=== PATIENT | male | born 1945 | race Caucasian/White ===

== ENCOUNTER → 2017-01-16 | Outpatient (CLI) | payer OTHER ==
[~2017-01-16] MED LIST: ACETAMINOPHEN325 MG PO; ACID CONTROLLER20 MG PO; ASPIRIN81 M1 PO; ASPIRIN81 M2 PO; ASPIRIN81 MG; ASPIRIN81 MG PO; CARDURA2 MG PO; CARVEDILOL25 MG PO; CLOPIDOGREL75 MG PO; COREG PO; COREG12.5 MG PO; COREG6.25 MG PO; CRESTOR PO; CRESTOR10 MG; DEMADEX PO; DEMADEX100 MG PO; DITROPAN PO; DITROPAN XL5 M2 PO; DITROPAN5 MG PO; DOXAZOSIN MESYLA2 MG PO; FAMOTIDINE20 M1 PO; FERROUS SULFATE PO; GUAIFENESIN600 MG PO; IMDUR PO; IMDUR30 MG; IMDUR30 MG PO; K-DUR20 ME1 PO; K-DUR20 ME2 PO; LISINOPRIL5 MG PO; MEXILETINE HCL150 MG PO; MEXITIL150 MG PO; PARICALCITOL2 MCG; PLAVIX PO; POTASSIUM CHLO10 MEQ PO; PREDNISONE PO; TORSEMIDE100 MG PO; TYLENOL #3 PO; ULORIC40 MG; ULORIC40 MG PO; ULTRAM PO; VICODIN 5/1 TAB 5/50 PO; VITAMIN E100 UNI2 PO; XANAX0.5 MG PO; ZEGERID 20 MG C1 CAP PO
[2017-01-16 13:29] LABS: ALBUMIN SERUM 3.8 g/dL (3.5-5.0); BILIRUBIN,TOTAL 0.9 mg/dL (0.2-2.0); BUN/CREATININE RATIO 15.92; CALCIUM SERUM 9.2 mg/dL (8.4-10.2); CREATININE SERUM 2.7 mg/dL (0.6-1.4); GLOM FILT RATE Estimated 24.9 mL/min (>60); PHOSPHOROUS 3.9 mg/dL (2.5-4.6); POTASSIUM 4.9 mmol/L (3.5-5.1); PROTEIN TOTAL SERUM 7.4 g/dL (6.0-8.3); URIC ACID 4.9 mg/dL (2.6-7.2)
[2017-01-19 23:44] LABS: CALCIUM (PTHINTACT) 9.5 mg/dL (8.6-10.3)
== END | disposition home or self-care (01) ==
LOC: CLAB 12:07
PROVIDERS: Internal Medicine Nephrology
DX: N17.9 Acute kidney failure, unspecified (principal); N18.3 Chronic kidney disease, stage 3 (moderate); N25.81 Secondary hyperparathyroidism of renal origin
CPT/HCPCS: 36415; 80053; 82310; 83970; 84100; 84550

== ENCOUNTER → 2017-04-02 | Outpatient (CLI) | payer OTHER ==
--- NOTE | ~2017-04-02 | US6 ---
[facility] A Service of [facility] RADIOLOGY TEXT RESULTS PATIENT: CRISSY SANCHEZ LOCATION: [facility] : 45 UNIT #: [id number] AGE: [address]: Andrade Garcia MD SEX: M ORDER DR: [id number] [facility] [address] [place], [place] [address] [id number] O MR#: [id number] Acc #: [id number] NAME: CRISSY SANCHEZ. : 1945 SEX: M STUDY DATE/TIME: 04/02/2017 7:31 UNIT: [facility] ROOM: STUDY DESCRIPTION: US Abdominal Limited Attending Physician: Andrade Garcia M.D. Referring Physician: Andrade Garcia M.D. Ordering Physician: Andrade Garcia M.D. Primary Care Physician: Ezekiel Rolon M.D. MEDICAL IMAGING REPORT This report is preliminary unless electronic signature is present EXAM Right upper quadrant abdominal ultrasound. DATE 04/02/2017 HISTORY Congestive heart failure. Cirrhosis. Abnormal elevated laboratory findings. Patient states abdominal discomfort for 1 year. Cholecystectomy approximately 8 years ago. Hypertension. Hyperlipidemia. COMPARISON Gallbladder ultrasound 09/01/2014. CT chest and abdomen 07/25/2016. FINDINGS The pancreas has a normal sonographic appearance. The liver demonstrates a coarsened echotexture with some diminished acoustic transmission which may reflect changes of the patient's known cirrhosis. There is a mildly lobulated contour of the liver surface in keeping with the stated history of cirrhosis. There is trace perihepatic ascites. No focal liver lesion is identified. Main portal vein is patent. Intrahepatic IVC demonstrates color flow. Small quantity right lower quadrant ascites is also noted. Liver size is within normal limits, 17.1 cm in the sagittal plane. Common bile duct caliber is within normal limits, 4-5 mm. No intrahepatic biliary ductal dilation is seen. Gallbladder is surgically absent. The right kidney measures 10.5 cm in length without focal cortical lesion, shadowing stone, or hydronephrosis. Right renal cortex appears thinned but maintains normal echogenicity. STS. [facility] A Service of [facility] RADIOLOGY TEXT RESULTS PATIENT: CRISSY SANCHEZ LOCATION: [facility] #: [id number] : 45 UNIT #: [id number] AGE: [address]: Andrade Garcia MD SEX: M ORDER DR: IMPRESSION 1. Lobulated surface contour of the liver with coarsened echogenicity in keeping with the stated history of cirrhosis. No focal liver lesions are identified on today's exam. 2. Small quantity ascites adjacent to the liver and within the right lower quadrant of the abdomen. 3. Cholecystectomy. No abnormal biliary ductal dilation. 4. Mild right renal cortical thinning. 5. Visualized portions of the pancreas appear unremarkable. Dictated by... Hailey Haddad M.D. THIS IS AN ELECTRONICALLY VERIFIED REPORT Hailey Haddad M.D. at 04/02/2017 5:00 PM AARON/jacobo TD: 04/02/2017 11:58 JOB #: [id number] MEDICAL IMAGING REPORT Page 1 of 1 COPY
== END | disposition home or self-care (01) ==
LOC: CGUS 06:55
DX: I50.9 Heart failure, unspecified (principal); R18.8 Other ascites; K74.60 Unspecified cirrhosis of liver
CPT/HCPCS: 76705

== ENCOUNTER → 2017-05-29 | Outpatient (CLI) | payer OTHER ==
[2017-05-29 16:21] LABS: ALBUMIN SERUM 3.2 g/dL (3.5-5.0); BILIRUBIN,TOTAL 0.7 mg/dL (0.2-2.0); BUN/CREATININE RATIO 11.61; CALCIUM SERUM 8.4 mg/dL (8.4-10.2); CREATININE SERUM 3.1 mg/dL (0.6-1.4); GLOM FILT RATE Estimated 19.1 mL/min (>60); PHOSPHOROUS 3.7 mg/dL (2.5-4.6); POTASSIUM 4.8 mmol/L (3.5-5.1); PROTEIN TOTAL SERUM 6.3 g/dL (6.0-8.3)
[2017-06-01 09:21] LABS: CALCIUM (PTHINTACT) 8.8 mg/dL (8.6-10.3)
== END | disposition home or self-care (01) ==
LOC: CLAB 15:16
PROVIDERS: Internal Medicine Nephrology
DX: N18.4 Chronic kidney disease, stage 4 (severe) (principal); N25.81 Secondary hyperparathyroidism of renal origin
CPT/HCPCS: 36415; 80053; 82310; 83970; 84100

== ENCOUNTER → 2017-07-23 | Outpatient (CLI) | payer OTHER ==
--- NOTE | ~2017-07-23 | CT57 ---
[facility] A Service of [facility] RADIOLOGY TEXT RESULTS PATIENT: CRISSY SANCHEZ LOCATION: [facility] : 45 UNIT #: [id number] AGE: [address]: Mio Palomo MD SEX: M ORDER DR: [id number] [id number] [facility]. [place], [place] [address] [id number] O MR#: [id number] Acc #: [id number] NAME: CRISSY SANCHEZ : 1945 SEX: M STUDY DATE/TIME: 07/23/2017 9:33 UNIT: [facility] ROOM: STUDY DESCRIPTION: CT Chest Wo Cont Attending Physician: Mio Palomo M.D. Referring Physician: Mio Palomo M.D. Ordering Physician: Mio Palomo M.D. Primary Care Physician: Ezekiel Rolon M.D. MEDICAL IMAGING REPORT This report is preliminary unless electronic signature is present EXAM CT chest without contrast. INDICATIONS Followup aortic aneurysm. TECHNIQUE CT of the chest was performed without contrast. Coronal and sagittal reformatted images were obtained. This CT exam was performed with one or more of the following radiation dose reduction techniques: Automatic exposure control, adjustment of mA and/or kV according to patient size, and iterative reconstruction. COMPARISON 07/25/2016. FINDINGS The patient has had a prior ascending aortic graft repair. The repair graft is stable in size and configuration. The descending thoracic aorta is within normal limits. Stable cardiomegaly. Prior CABG. ICD. No suspicious lymphadenopathy. No pleural effusion. Stable interstitial thickening in the lung bases. No dense airspace consolidation. No evidence for suspicious pulmonary nodule. Limited imaging in the upper abdomen shows a small amount of upper abdominal ascites, stable. Bone windows show degenerative changes of the thoracic spine. IMPRESSION 1. Stable ascending aortic graft repair. 2. Additional findings as described above. Dictated by... Vladimir Palmer M.D. [facility] A Service [facility] RADIOLOGY TEXT RESULTS PATIENT: CRISSY SANCHEZ LOCATION: [facility] : 45 UNIT #: [id number] AGE: [address]: Mio Palomo MD SEX: M ORDER DR: THIS IS AN ELECTRONICALLY VERIFIED REPORT Vladimir Palmer M.D. at 07/24/2017 8:00 AM MATTI/ricki TD: 07/23/2017 16:19 JOB #: [id number] MEDICAL IMAGING REPORT Page 1 of 1 COPY
== END | disposition home or self-care (01) ==
LOC: CCAT 09:02
DX: I71.2 Thoracic aortic aneurysm, without rupture (principal); I51.7 Cardiomegaly; M47.894 Other spondylosis, thoracic region; Z98.890 Other specified postprocedural states
CPT/HCPCS: 71250